=== PATIENT | male | born 1945 | race Caucasian/White ===

== ENCOUNTER → 2018-08-31 | Outpatient (REF) | payer MEDICARE ==
[2018-08-31 17:07] LABS: ALT/SGPT 37 U/L (12-78); BILIRUBIN,TOTAL 0.8 MG/DL (0.2-1.0); BLOOD UREA NITROGEN 14 MG/DL (7-18); CARBON DIOXIDE LEVEL 30 MEQ/L (21-32); CHLORIDE LEVEL 105 MEQ/L (98-107); CREATININE FOR GFR 1.13 MG/DL (0.70-1.30); GLOMERULAR FILTRATION RATE > 60.0 (>42); GLUCOSE, FASTING 109 MG/DL (70-100); POTASSIUM SERUM 4.7 MEQ/L (3.5-5.1); SODIUM LEVEL 141 MEQ/L (136-145); TOTAL PROTEIN 6.5 GM/DL (6.4-8.2)
== END ==
LOC: M LAB REF 16:14
PROVIDERS: ATTEND Family Medicine
DX: R10.9 Unspecified abdominal pain (principal); K57.90 Diverticulosis of intestine, part unspecified, without perforation or abscess without bleeding

== ENCOUNTER 2018-09-27 11:38 | Day surgery (SDC) | payer MEDICARE, OTHER ==
[~2018-09-27] VITALS: Ht 172.7 cm; Wt 121.6 kg
[~2018-09-27 11:38] MED LIST: ACET500T15 PO; ASPI81TA85 PO; ATOR40TA75 PO; B COTAB3 PO; BUPR1TAB53 PO; BUSP10TA PO; CHLO25TA PO; FISH306C PO; LISI40TA PO; MAGN400C2 PO; METF-839 PO; MIRT1TAB15 PO; NEUR300C PO; NS 1,000 ML IV ONE; SILD100T PO; VITA-157 PO
[2018-09-27] MEDS ORDERED: LIDOCAINE 2% INJ 100 MG/5 ML SDV (FOR ANES.) As Ordered ONE (14:25)
[2018-09-27] MEDS ORDERED: GLYCOPYRROLATE INJ 0.2 MG/ML 2 ML VIAL As Ordered ONE (14:25)
[2018-09-27] MEDS ORDERED: PROPOFOL 200 MG/20 ML VIAL As Ordered ONE ×2 (14:25→14:34)
--- NOTE | 2018-09-27 14:38 | ROOR ---
Patient Name: Kimani Sol Procedure Date: 09/27/2018 2:11 PM Date of : 1945 Age: 72 Room: [facility] Gender: Male Note Status: Finalized Procedure: Colonoscopy Indications: High risk colon cancer surveillance: Personal history of colonic polyps Providers: Catalino Ryan Jr, MD Referring MD: Yoli Petit DO Requesting Provider: Medicines: Propofol per Anesthesia Complications: No immediate complications. Procedure: Pre-Anesthesia Assessment: - Prior to the procedure, a History and Physical was performed, and patient medications and allergies were reviewed. The patient is competent. The risks and benefits of the procedure and the sedation options and risks were discussed with the patient. All questions were answered and informed consent was obtained. Patient identification and proposed procedure were verified by the physician and the nurse in the pre-procedure area and in the procedure room. Mental Status Examination: alert and oriented. Airway Examination: normal oropharyngeal airway and neck mobility. Respiratory Examination: clear to auscultation. CV Examination: normal. ASA Grade Assessment: II - A patient with mild systemic disease. After reviewing the risks and benefits, the patient was deemed in satisfactory condition to undergo the procedure. The anesthesia plan was to use moderate sedation / analgesia (conscious sedation). Immediately prior to administration of medications, the patient was re-assessed for adequacy to receive sedatives. The heart rate, respiratory rate, oxygen saturations, blood pressure, adequacy of pulmonary ventilation, and response to care were monitored throughout the procedure. The physical status of the patient was re-assessed after the procedure. The Colonoscope was introduced through the anus and advanced to the cecum, identified by appendiceal orifice and ileocecal valve. The colonoscopy was performed without difficulty. The patient tolerated the procedure well. The quality of the bowel preparation was adequate. Findings: The rectum, recto-sigmoid colon, descending colon, cecum, appendiceal orifice and ileocecal valve appeared normal. Multiple small and large-mouthed diverticula were found in the sigmoid colon. External and internal hemorrhoids were found during endoscopy. The hemorrhoids were moderate, Grade II (internal hemorrhoids that prolapse but reduce spontaneously) and Grade III (internal hemorrhoids that prolapse but require manual reduction). Three polyps were found in the sigmoid colon, transverse colon and ascending colon. The polyps were small in size. These polyps were removed with a hot snare. Resection and retrieval were complete. Impression: - The rectum, recto-sigmoid colon, descending colon, cecum, appendiceal orifice and ileocecal valve are normal. - Diverticulosis in the sigmoid colon. - External and internal hemorrhoids. - Three small polyps in the sigmoid colon, in the transverse colon and in the ascending colon, removed with a hot snare. Resected and retrieved. Recommendation: - Discharge patient to home (ambulatory). - Repeat colonoscopy in 5 years for surveillance. Catalino Ryan MD Catalino Ryan Jr, MD 09/27/2018 2:38:05 PM Electronically signed by Catalino Ryan Jr, MD Number of Addenda: 0 Note Initiated On: 09/27/2018 2:11 PM Estimated Blood Loss: Estimated blood loss: none.
[2018-09-27 15:27] VITALS: BP 167/92
== END 2018-09-27 15:20 | disposition home or self-care (01) ==
LOC: M OPP 11:38
PROVIDERS: ATTEND Surgery
DX: D12.2 Benign neoplasm of ascending colon (principal); D12.3 Benign neoplasm of transverse colon; D12.5 Benign neoplasm of sigmoid colon; K57.30 Diverticulosis of large intestine without perforation or abscess without bleeding; K64.1 Second degree hemorrhoids; K64.2 Third degree hemorrhoids; Z86.010 Personal history of colon polyps

== ENCOUNTER → 2020-05-25 | Outpatient (CLI) | payer MEDICARE, OTHER ==
[~2020-05-25] MED LIST changes: -ASPI81TA85 PO; +ASPI81TA86 PO; -NS 1,000 ML IV ONE
== END ==
LOC: M LABSMTC 13:15
PROVIDERS: ATTEND Family Medicine
DX: Z20.828 Contact with and (suspected) exposure to other viral communicable diseases (principal)

== ENCOUNTER → 2022-02-02 | Outpatient (CLI) | payer MEDICARE, OTHER ==
[~2022-02-02] MED LIST changes: -LISI40TA PO; +LISI40TA4 PO; -VITA-157 PO; +VITAE40CA PO
== END ==
LOC: M WUC 11:46
PROVIDERS: ATTEND Internal Medicine
DX: M25.562 Pain in left knee (principal); M76.9 Unspecified enthesopathy, lower limb, excluding foot

== ENCOUNTER → 2023-12-28 | Outpatient (CLI) | payer MEDICARE, OTHER | LOC: M PLARAD 14:34 | PROVIDERS: ATTEND Pain Medicine Pain Medicine | DX: R20.0 Anesthesia of skin (principal); R20.2 Paresthesia of skin; M53.86 Other specified dorsopathies, lumbar region; M47.816 Spondylosis without myelopathy or radiculopathy, lumbar region; M47.817 Spondylosis without myelopathy or radiculopathy, lumbosacral region; M48.061 Spinal stenosis, lumbar region without neurogenic claudication; M48.07 Spinal stenosis, lumbosacral region; M51.36 Other intervertebral disc degeneration, lumbar region; M51.37 Other intervertebral disc degeneration, lumbosacral region ==

== ENCOUNTER → 2025-02-28 | Outpatient (CLI) | payer MEDICARE, OTHER ==
[~2025-02-28] MED LIST changes: +BUPR150T15 PO; -BUPR1TAB53 PO; +LISI40TA10 PO; -LISI40TA4 PO
== END ==
LOC: M PLAIMG 09:35
PROVIDERS: ATTEND Physician Assistant
DX: I08.0 Rheumatic disorders of both mitral and aortic valves (principal); I77.810 Thoracic aortic ectasia